=== PATIENT | female | born 1940 | race Caucasian/White ===

== ENCOUNTER 2018-09-16 10:09 | Emergency (ER) | payer OTHER ==
[~2018-09-16] VITALS: Ht 162.5 cm; Wt 72.6 kg
[~2018-09-16 10:09] MED LIST: LOMOTIL 0.025 M1 TA1 PO; NORCO 5-325 TA1 EACH PO; ZOFRAN ODT4 MG SL
[2018-09-16] MEDS ORDERED: NORCO 5-325 TA1 EACH PO (11:49)
== END 2018-09-16 12:49 | disposition home or self-care (01) ==
LOC: ED 10:09
DX: S43.084A Other dislocation of right shoulder joint, initial encounter (principal); Z90.49 Acquired absence of other specified parts of digestive tract; Z90.710 Acquired absence of both cervix and uterus; Z88.1 Allergy status to other antibiotic agents; Z91.011 Allergy to milk products; Z79.899 Other long term (current) drug therapy; X50.1XXA Overexertion from prolonged static or awkward postures, initial encounter; Y93.89 Activity, other specified; Y92.89 Other specified places as the place of occurrence of the external cause; Y99.9 Unspecified external cause status

== ENCOUNTER 2018-09-25 19:37 | Emergency (ER) | payer OTHER ==
[~2018-09-25] VITALS: Ht 162.5 cm; Wt 72.6 kg
== END 2018-09-26 00:17 | disposition home or self-care (01) ==
LOC: ED 19:37
DX: S43.014A Anterior dislocation of right humerus, initial encounter (principal); Z90.49 Acquired absence of other specified parts of digestive tract; Z90.710 Acquired absence of both cervix and uterus; Z88.1 Allergy status to other antibiotic agents; Z91.011 Allergy to milk products; X50.1XXA Overexertion from prolonged static or awkward postures, initial encounter; Y93.89 Activity, other specified; Y92.89 Other specified places as the place of occurrence of the external cause; Y99.9 Unspecified external cause status

== ENCOUNTER → 2019-08-04 | Outpatient (CLI) | payer OTHER | END | disposition home or self-care (01) | LOC: MRI 13:43 | DX: S83.282A Other tear of lateral meniscus, current injury, left knee, initial encounter (principal); M25.462 Effusion, left knee; X58.XXXA Exposure to other specified factors, initial encounter; Y93.89 Activity, other specified; Y92.89 Other specified places as the place of occurrence of the external cause; Y99.8 Other external cause status ==

== ENCOUNTER 2023-02-27 14:01 | Inpatient (IN) | payer OTHER ==
[~2023-02-27] VITALS: Ht 167.6 cm; Wt 72.6 kg
[2023-02-27 14:50] VITALS: BP 119/47
[2023-02-27 15:51] LABS: BASO # 0.1 10*3/uL (0.0-0.1); BASO % 0.5 % (0.0-1.0); EOS # 0.1 10*3/uL (0.0-0.4); EOS % 0.8 % (1.0-4.0); HEMATOCRIT 42.6 % (37.0-47.0); LYMPH # 1.4 10*3/uL (1.3-4.4); LYMPH % 10.8 % (27.0-41.0); MEAN CELL VOLUME 91.8 fl (81.0-99.0); MEAN CORPUSCULAR HGB 29.1 pg (27.0-31.0); MEAN CORPUSCULAR HGB CONC 31.7 g/dl (33.0-37.0); MEAN PLATELET VOLUME 9.5 fl (9.6-12.3); MONO # 0.7 10*3/uL (0.1-1.0); MONO % 5.5 % (3.0-9.0); NEUT # 10.8 10*3/uL (2.3-7.9); NEUT % 81.9 % (47.0-73.0); PLATELET COUNT AUTOMATED 191 10*3/uL (130-400); RED BLOOD COUNT 4.64 10*6/uL (4.10-5.10); RED CELL DISTRI WIDTH 13.7 % (0-14.5); WHITE BLOOD COUNT 13.2 10*3/uL (4.8-10.8)
[2023-02-27 16:02] LABS: ACT PARTIAL THROMBO TIME 25.1 SECONDS (20.0-32.1)
[2023-02-27 16:18] LABS: ALKALINE PHOSPHATASE 84 U/L (46-116); BUN 15 mg/dl (9-23); CHLORIDE 103 mmol/L (98-107); LIPASE 30 U/L (12-53); POTASSIUM 3.7 mmol/L (3.4-5.1); SGPT/ALT 14 U/L (10-49); TOTAL PROTEIN 6.7 gm/dL (6.0-8.0)
[2023-02-27 17:55] LABS: BILIRUBIN Negative (Negative); BLOOD Negative (Negative); CLARITY Clear (Clear); COLOR Yellow (Yellow); GLUCOSE Negative (Negative); KETONE Negative (Negative); LEUKO ESTERASE 2+ (Negative); NITRITE Positive (Negative); SPECIFIC GRAVITY 1.015 (1.001-1.030); UROBILINOGEN 0.2 E.U./dl (0.0-1.0)
[2023-02-27 18:14] LABS: BACTERIA 4+; WBC 21-30 wbc/hpf (0-5)
[2023-02-27 19:00] VITALS: BP 120/50
[2023-02-27] MEDS ORDERED: PROTONIX TR40 M1 PO (19:24)
[2023-02-27] MEDS ORDERED: SYNTHROID,LEVO88 MCG PO (19:25)
[2023-02-27] MEDS ORDERED: PLAVIX75 M1 PO (19:25)
[2023-02-27] MEDS ORDERED: PRISTIQ50 MG PO (19:25)
[2023-02-28] VITALS: BP 118/54
[2023-02-28 08:00] VITALS: BP 196/84
[2023-02-28 08:45] LABS: BASO % 0.6 % (0.0-1.0); EOS # 0.2 10*3/uL (0.0-0.4); EOS % 2.7 % (1.0-4.0); HEMATOCRIT 36.4 % (37.0-47.0); LYMPH # 1.6 10*3/uL (1.3-4.4); LYMPH % 23.8 % (27.0-41.0); MEAN CELL VOLUME 91.9 fl (81.0-99.0); MEAN CORPUSCULAR HGB CONC 31.6 g/dl (33.0-37.0); MEAN PLATELET VOLUME 9.7 fl (9.6-12.3); MONO # 0.7 10*3/uL (0.1-1.0); MONO % 9.9 % (3.0-9.0); NEUT # 4.2 10*3/uL (2.3-7.9); NEUT % 62.8 % (47.0-73.0); PLATELET COUNT AUTOMATED 152 10*3/uL (130-400); RED BLOOD COUNT 3.96 10*6/uL (4.10-5.10); RED CELL DISTRI WIDTH 13.7 % (0-14.5); WHITE BLOOD COUNT 6.6 10*3/uL (4.8-10.8)
[2023-02-28 09:20] LABS: ALKALINE PHOSPHATASE 67 U/L (46-116); BUN 14 mg/dl (9-23); CHLORIDE 107 mmol/L (98-107); CHOLESTEROL 125 mg/dL (<200); FREE T4 0.93 ng/dl (0.89-1.76); LDL CHOLESTEROL 61 mg/dL (9-159); POTASSIUM 3.6 mmol/L (3.4-5.1); SGPT/ALT 9 U/L (10-49); TOTAL PROTEIN 5.5 gm/dL (6.0-8.0); TRIGLYCERIDES 89 mg/dl (<150)
[2023-02-28 10:04] LABS: VITAMIN D, 25-HYDROXY 57.6 ng/mL (30-100)
[2023-02-28 16:00] VITALS: BP 125/31
[2023-02-28] MEDS ORDERED: NEURONTIN300 MG PO (16:53)
[2023-02-28] MEDS ORDERED: PRAVASTATIN SOD10 MG PO (16:55)
[2023-03-01] VITALS: BP 110/51
[2023-03-01 08:00] VITALS: BP 143/45
[2023-03-01 12:00] VITALS: BP 135/52
[2023-03-01 16:00] VITALS: BP 151/58
[2023-03-01 20:00] VITALS: BP 124/50
[2023-03-02] VITALS: BP 109/48
[2023-03-02 08:00] VITALS: BP 119/59
[2023-03-02 12:00] VITALS: BP 137/78
[2023-03-02 16:00] VITALS: BP 126/51
[2023-03-02 20:00] VITALS: BP 132/52
[2023-03-03] VITALS: BP 115/51
[2023-03-03 08:00] VITALS: BP 114/50
[2023-03-03 12:00] VITALS: BP 111/45
[2023-03-03 16:00] VITALS: BP 120/45
[2023-03-03 20:00] VITALS: BP 125/57
[2023-03-04] VITALS: BP 126/50
[2023-03-04 06:07] LABS: BASO # 0.1 10*3/uL (0.0-0.1); BASO % 0.8 % (0.0-1.0); EOS # 0.4 10*3/uL (0.0-0.4); EOS % 4.8 % (1.0-4.0); HEMATOCRIT 39.8 % (37.0-47.0); LYMPH # 2.2 10*3/uL (1.3-4.4); LYMPH % 30.4 % (27.0-41.0); MEAN CORPUSCULAR HGB CONC 31.2 g/dl (33.0-37.0); MEAN PLATELET VOLUME 9.9 fl (9.6-12.3); MONO # 0.6 10*3/uL (0.1-1.0); MONO % 8.6 % (3.0-9.0); PLATELET COUNT AUTOMATED 176 10*3/uL (130-400); RED BLOOD COUNT 4.28 10*6/uL (4.10-5.10); RED CELL DISTRI WIDTH 13.7 % (0-14.5); WHITE BLOOD COUNT 7.3 10*3/uL (4.8-10.8)
[2023-03-04 06:28] LABS: ALKALINE PHOSPHATASE 71 U/L (46-116); BUN 10 mg/dl (9-23); CHLORIDE 101 mmol/L (98-107); POTASSIUM 3.9 mmol/L (3.4-5.1); SGPT/ALT 8 U/L (10-49); TOTAL PROTEIN 6.2 gm/dL (6.0-8.0)
[2023-03-04 08:00] VITALS: BP 137/52
[2023-03-04 12:00] VITALS: BP 132/58
[2023-03-04 16:00] VITALS: BP 133/64
[2023-03-04 20:00] VITALS: BP 125/61
[2023-03-05] VITALS: BP 122/54
[2023-03-05 08:00] VITALS: BP 153/78
[2023-03-05 12:00] VITALS: BP 131/52
[2023-03-05 16:00] VITALS: BP 119/50
[2023-03-05 20:00] VITALS: BP 126/48
[2023-03-06] VITALS: BP 106/47; BP 142/85
[2023-03-06 08:00] VITALS: BP 130/57
[2023-03-06] MEDS ORDERED: HYDROCODONE-AC1 EAC1 PO (10:48)
[2023-03-06] MEDS ORDERED: NEURONTIN300 MG PO (10:48)
[2023-03-06 12:00] VITALS: BP 134/67
== END 2023-03-06 15:34 | DRG 536 ==
LOC: ED 14:01 → 4E 18:31 → EDHOLD 18:31 → 4E 02-28 17:03
PROVIDERS: Emergency Medicine; Internal Medicine; Student in an Organized Health Care Education/Training Program; ADMIT Internal Medicine; ATTEND Internal Medicine
DX: S32.592A Other specified fracture of left pubis, initial encounter for closed fracture (principal); N39.0 Urinary tract infection, site not specified; E03.9 Hypothyroidism, unspecified; D72.829 Elevated white blood cell count, unspecified; D64.9 Anemia, unspecified; R73.9 Hyperglycemia, unspecified; K21.9 Gastro-esophageal reflux disease without esophagitis; F41.9 Anxiety disorder, unspecified; Z88.8 Allergy status to other drugs, medicaments and biological substances; Z88.1 Allergy status to other antibiotic agents; Z91.041 Radiographic dye allergy status; Z90.49 Acquired absence of other specified parts of digestive tract; Z90.710 Acquired absence of both cervix and uterus; Z86.711 Personal history of pulmonary embolism; Z86.718 Personal history of other venous thrombosis and embolism; Z80.0 Family history of malignant neoplasm of digestive organs; W18.39XA Other fall on same level, initial encounter; Y93.89 Activity, other specified; Y92.89 Other specified places as the place of occurrence of the external cause; Y99.8 Other external cause status

== ENCOUNTER → 2023-03-21 | Outpatient (CLI) | payer OTHER ==
[~2023-03-21] MED LIST changes: +HYDROCODONE-AC1 EAC1 PO; +NEURONTIN300 MG PO; +PLAVIX75 M1 PO; +PRAVASTATIN SOD10 MG PO; +PRISTIQ50 MG PO; +PROTONIX TR40 M1 PO; +SYNTHROID,LEVO88 MCG PO
== END | disposition home or self-care (01) ==
LOC: ORTHO 00:52
PROVIDERS: ATTEND Orthopaedic Surgery
DX: S32.592D Other specified fracture of left pubis, subsequent encounter for fracture with routine healing (principal); M16.0 Bilateral primary osteoarthritis of hip; X58.XXXD Exposure to other specified factors, subsequent encounter

== ENCOUNTER 2023-04-30 18:24 | Emergency (ER) | payer OTHER ==
[~2023-04-30] VITALS: Wt 77.1 kg
[~2023-04-30 18:24] MED LIST changes: +CO Q-1050 M1 PO; +DOXYCYCLINE HY100 M3 PO
[2023-04-30 19:14] LABS: BASO % 0.2 % (0.0-1.0); EOS # 0.2 10*3/uL (0.0-0.4); EOS % 2.5 % (1.0-4.0); HEMATOCRIT 38.2 % (37.0-47.0); LYMPH # 0.4 10*3/uL (1.3-4.4); LYMPH % 6.5 % (27.0-41.0); MEAN CELL VOLUME 89.5 fl (81.0-99.0); MEAN CORPUSCULAR HGB CONC 32.5 g/dl (33.0-37.0); MEAN PLATELET VOLUME 9.3 fl (9.6-12.3); MONO # 0.3 10*3/uL (0.1-1.0); MONO % 5.2 % (3.0-9.0); NEUT # 5.2 10*3/uL (2.3-7.9); NEUT % 85.3 % (47.0-73.0); PLATELET COUNT AUTOMATED 144 10*3/uL (130-400); RED BLOOD COUNT 4.27 10*6/uL (4.10-5.10); RED CELL DISTRI WIDTH 14.1 % (0-14.5); WHITE BLOOD COUNT 6.1 10*3/uL (4.8-10.8)
[2023-04-30 19:36] LABS: ALKALINE PHOSPHATASE 114 U/L (46-116); BUN 14 mg/dl (9-23); CHLORIDE 99 mmol/L (98-107); LIPASE 23 U/L (12-53); POTASSIUM 3.8 mmol/L (3.4-5.1); SGPT/ALT 60 U/L (5-49); TOTAL PROTEIN 6.2 gm/dL (6.0-8.0)
[2023-04-30 20:36] LABS: BILIRUBIN Negative (Negative); BLOOD Negative (Negative); CLARITY Clear (Clear); COLOR Yellow (Yellow); GLUCOSE Negative (Negative); KETONE Negative (Negative); LEUKO ESTERASE 1+ (Negative); NITRITE Negative (Negative)
[2023-04-30 20:56] LABS: BACTERIA TRACE; MUCOUS 1+
[2023-04-30] MEDS ORDERED: OMNICEF300 MG PO (21:04)
== END 2023-04-30 21:58 | disposition home or self-care (01) ==
LOC: ED 18:24
PROVIDERS: Nurse Practitioner Family
DX: N39.0 Urinary tract infection, site not specified (principal); R11.2 Nausea with vomiting, unspecified; I10 Essential (primary) hypertension; R73.9 Hyperglycemia, unspecified; F41.9 Anxiety disorder, unspecified; K21.9 Gastro-esophageal reflux disease without esophagitis; F32.A Depression, unspecified; E78.00 Pure hypercholesterolemia, unspecified; E03.9 Hypothyroidism, unspecified; Z88.8 Allergy status to other drugs, medicaments and biological substances; Z91.041 Radiographic dye allergy status; Z90.49 Acquired absence of other specified parts of digestive tract; Z98.890 Other specified postprocedural states; Z90.710 Acquired absence of both cervix and uterus

== ENCOUNTER 2023-07-04 12:17 | Emergency (ER) | payer OTHER ==
[~2023-07-04] VITALS: Ht 162.5 cm; Wt 68.5 kg
[~2023-07-04 12:17] MED LIST changes: +ACID REDUCER10 MG PO; +AMOXICILLIN500 M3 PO; +BUPROPION HYDR150 M3 PO; +OMNICEF300 MG PO
[2023-07-04 12:57] LABS: BASO % 0.5 % (0.0-1.0); EOS # 0.2 10*3/uL (0.0-0.4); EOS % 2.7 % (1.0-4.0); HEMATOCRIT 42.4 % (37.0-47.0); LYMPH # 2.1 10*3/uL (1.3-4.4); LYMPH % 27.2 % (27.0-41.0); MEAN CELL VOLUME 91.6 fl (81.0-99.0); MEAN CORPUSCULAR HGB 28.7 pg (27.0-31.0); MEAN CORPUSCULAR HGB CONC 31.4 g/dl (33.0-37.0); MEAN PLATELET VOLUME 9.3 fl (9.6-12.3); MONO # 0.6 10*3/uL (0.1-1.0); NEUT # 4.7 10*3/uL (2.3-7.9); NEUT % 61.3 % (47.0-73.0); PLATELET COUNT AUTOMATED 228 10*3/uL (130-400); RED BLOOD COUNT 4.63 10*6/uL (4.10-5.10); RED CELL DISTRI WIDTH 14.1 % (0-14.5); WHITE BLOOD COUNT 7.7 10*3/uL (4.8-10.8)
[2023-07-04 13:08] LABS: ACT PARTIAL THROMBO TIME 26.4 SECONDS (20.0-32.1)
[2023-07-04 13:18] LABS: ALKALINE PHOSPHATASE 79 U/L (46-116); BUN 10 mg/dl (9-23); CHLORIDE 101 mmol/L (98-107); POTASSIUM 4.5 mmol/L (3.4-5.1); TOTAL PROTEIN 6.8 gm/dL (6.0-8.0)
[2023-07-04 13:30] LABS: SGPT/ALT < 7 U/L (5-49)
[2023-07-04 15:05] LABS: BILIRUBIN Negative (Negative); BLOOD Negative (Negative); CLARITY Cloudy (Clear); COLOR Yellow (Yellow); GLUCOSE Negative (Negative); KETONE Negative (Negative); LEUKO ESTERASE Trace (Negative); NITRITE Negative (Negative); UROBILINOGEN 0.2 E.U./dl (0.0-1.0)
[2023-07-04 15:34] LABS: BACTERIA TRACE
== END 2023-07-04 15:01 | disposition home or self-care (01) ==
LOC: ED 12:17
PROVIDERS: Nurse Practitioner
DX: R25.1 Tremor, unspecified (principal); F41.9 Anxiety disorder, unspecified; F32.A Depression, unspecified; K21.9 Gastro-esophageal reflux disease without esophagitis; E78.00 Pure hypercholesterolemia, unspecified; R10.2 Pelvic and perineal pain; Z86.73 Personal history of transient ischemic attack (TIA), and cerebral infarction without residual deficits; Z88.1 Allergy status to other antibiotic agents; Z91.041 Radiographic dye allergy status; Z88.8 Allergy status to other drugs, medicaments and biological substances; Z90.49 Acquired absence of other specified parts of digestive tract; Z90.710 Acquired absence of both cervix and uterus; Z98.890 Other specified postprocedural states; Z79.899 Other long term (current) drug therapy

== ENCOUNTER 2023-09-19 18:02 | Inpatient (IN) | payer OTHER ==
[~2023-09-19] VITALS: Ht 162.5 cm; Wt 76.3 kg
[2023-09-19 18:05] VITALS: BP 160/90
[2023-09-19] MEDS ORDERED: DESVENLAFAXINE50 M3 PO (18:50)
[2023-09-19] MEDS ORDERED: DAIRY AID3000 UNIT PO (18:51)
[2023-09-19] MEDS ORDERED: PAIN RELIEVER500 MG PO (18:55)
[2023-09-19] MEDS ORDERED: LOTEMAX 0.5% 1010 ML OPH (18:57)
[2023-09-19] MEDS ORDERED: SYSTANE 0.3-0.1 EACH OP (19:02)
[2023-09-19 19:09] LABS: ALKALINE PHOSPHATASE 80 U/L (46-116); BUN 14 mg/dl (9-23); CHLORIDE 103 mmol/L (98-107); POTASSIUM 3.9 mmol/L (3.4-5.1); SGPT/ALT 7 U/L (5-49); TOTAL PROTEIN 6.8 gm/dL (6.0-8.0)
[2023-09-19 19:11] VITALS: BP 148/30
[2023-09-19] MEDS ORDERED: SODIUM CHLORIDE 0.9% 1,000 ML IV ONE (19:15)
[2023-09-19 19:23] LABS: BASO # 0.1 10*3/uL (0.0-0.1); BASO % 0.7 % (0.0-1.0); EOS # 0.2 10*3/uL (0.0-0.4); EOS % 2.4 % (1.0-4.0); HEMATOCRIT 40.3 % (37.0-47.0); LYMPH # 2.4 10*3/uL (1.3-4.4); LYMPH % 28.5 % (27.0-41.0); MEAN CELL VOLUME 92.6 fl (81.0-99.0); MEAN CORPUSCULAR HGB 27.8 pg (27.0-31.0); MONO # 0.8 10*3/uL (0.1-1.0); MONO % 9.4 % (3.0-9.0); NEUT # 4.9 10*3/uL (2.3-7.9); NEUT % 58.8 % (47.0-73.0); PLATELET COUNT AUTOMATED 176 10*3/uL (130-400); RED BLOOD COUNT 4.35 10*6/uL (4.10-5.10); RED CELL DISTRI WIDTH 14.3 % (0-14.5); WHITE BLOOD COUNT 8.3 10*3/uL (4.8-10.8)
[2023-09-19] MEDS ORDERED: methylPREDNISolone sod succ 125 MG VIAL IV ONE (20:00)
[2023-09-19] MEDS ORDERED: ACETAMINOPHEN 325 MG TAB PO PRN (20:30)
[2023-09-19] MEDS ORDERED: BISACODYL 10 MG SUPP R PRN (20:30)
[2023-09-19] MEDS ORDERED: Magnesium Hydroxide 30 ML UDC PO PRN (20:30)
[2023-09-19] MEDS ORDERED: Acetaminophen/Hydrocodone 5 MG/325 MG TABLET PO PRN (20:30)
[2023-09-19] MEDS ORDERED: TEMAZEPAM 15 MG CAP PO PRN (20:30)
[2023-09-19] MEDS ORDERED: ACETAMINOPHEN 650 MG SUPP R PRN (20:30)
[2023-09-19] MEDS ORDERED: BISACODYL 5 MG TAB PO PRN (20:30)
[2023-09-19] MEDS ORDERED: Albuterol Sulf/Ipratropium 14.7 GM INHALER INH PRN (20:35)
[2023-09-19] MEDS ORDERED: Albuterol Sulf/Ipratropium 3 ML VIAL NEB PRN (20:45)
[2023-09-19 21:01] VITALS: BP 107/86
[2023-09-19] MEDS ORDERED: GUAIFENESIN 600 MG TAB ER PO SCH (22:00)
[2023-09-19] MEDS ORDERED: SODIUM CHLORIDE 0.9% 500 ML IV SCH (23:35)
[2023-09-20] VITALS (8 sets, daily range): BP systolic 112–137; BP diastolic 48–76
[2023-09-20 07:18] LABS: HEMATOCRIT 38.6 % (37.0-47.0); MEAN CELL VOLUME 91.5 fl (81.0-99.0); MEAN CORPUSCULAR HGB CONC 30.6 g/dl (33.0-37.0); PLATELET COUNT AUTOMATED 173 10*3/uL (130-400); RED BLOOD COUNT 4.22 10*6/uL (4.10-5.10); RED CELL DISTRI WIDTH 14.1 % (0-14.5); WHITE BLOOD COUNT 6.8 10*3/uL (4.8-10.8)
[2023-09-20 07:26] LABS: MANUAL DIFF REFLEX YES
[2023-09-20 07:39] LABS: PLATELET SUFFICIENCY NORMAL (NORMAL); POLYCHROMASIA SLIGHT; TOTAL CELLS COUNTED 100 #CELLS; TOXIC GRANULATION SLIGHT
[2023-09-20 07:40] LABS: OVALOCYTES FEW; ROULEAUX SLIGHT
[2023-09-20 07:55] LABS: BUN 12 mg/dl (9-23); CHLORIDE 105 mmol/L (98-107); POTASSIUM 4.1 mmol/L (3.4-5.1)
[2023-09-20] MEDS ORDERED: Ceftriaxone Sodium 1 GM in SYRINGE INFUSION 10 ML IV SCH (09:05)
[2023-09-20 09:51] LABS: BILIRUBIN Negative (Negative); BLOOD Trace-Lysed (Negative); CLARITY Cloudy (Clear); COLOR Yellow (Yellow); GLUCOSE Negative (Negative); KETONE Negative (Negative); LEUKO ESTERASE 3+ (Negative); NITRITE Positive (Negative); SPECIFIC GRAVITY 1.015 (1.001-1.030); UROBILINOGEN 0.2 E.U./dl (0.0-1.0)
[2023-09-20] MEDS ORDERED: Enoxaparin Sodium 40 MG/0.4 ML SYR SC SCH (10:00)
[2023-09-20] MEDS ORDERED: methylPREDNISolone sod succ 40 MG VIAL IV SCH (10:00)
[2023-09-20 10:13] LABS: BACTERIA 4+
[2023-09-20 10:14] LABS: WBC 51-100 wbc/hpf (0-5)
[2023-09-20] MEDS ORDERED: AZITHROMYCIN 250 ML IV SCH (11:00)
[2023-09-20] MEDS ORDERED: Doxycycline Hyclate 100 MG in SODIUM CHLORIDE 0.9% 250 ML IV SCH (13:00)
[2023-09-21] VITALS: BP 132/58
[2023-09-21] MEDS ORDERED: NYSTATIN 15 GM BOT T SCH (06:00)
[2023-09-21 06:39] LABS: BASO % 0.1 % (0.0-1.0); LYMPH # 1.2 10*3/uL (1.3-4.4); MEAN CELL VOLUME 89.2 fl (81.0-99.0); MEAN CORPUSCULAR HGB 27.9 pg (27.0-31.0); MEAN CORPUSCULAR HGB CONC 31.3 g/dl (33.0-37.0); MEAN PLATELET VOLUME 9.8 fl (9.6-12.3); MONO # 0.2 10*3/uL (0.1-1.0); MONO % 1.5 % (3.0-9.0); NEUT # 10.2 10*3/uL (2.3-7.9); NEUT % 87.9 % (47.0-73.0); PLATELET COUNT AUTOMATED 182 10*3/uL (130-400); RED BLOOD COUNT 4.26 10*6/uL (4.10-5.10); RED CELL DISTRI WIDTH 14.5 % (0-14.5); WHITE BLOOD COUNT 11.6 10*3/uL (4.8-10.8)
[2023-09-21 07:11] LABS: BUN 11 mg/dl (9-23); CHLORIDE 104 mmol/L (98-107)
[2023-09-21 08:00] VITALS: BP 138/58
[2023-09-21] MEDS ORDERED: Ondansetron Hydrochloride 4 MG/2 ML VIAL IV PRN (09:55)
[2023-09-21 12:00] VITALS: BP 101/73
[2023-09-21 16:00] VITALS: BP 141/71
[2023-09-21 20:00] VITALS: BP 136/77
[2023-09-22] VITALS: BP 178/50
[2023-09-22 06:37] LABS: HEMATOCRIT 40.3 % (37.0-47.0); LYMPH # 1.1 10*3/uL (1.3-4.4); LYMPH % 13.1 % (27.0-41.0); MEAN CELL VOLUME 88.8 fl (81.0-99.0); MEAN CORPUSCULAR HGB 27.8 pg (27.0-31.0); MEAN CORPUSCULAR HGB CONC 31.3 g/dl (33.0-37.0); MEAN PLATELET VOLUME 9.6 fl (9.6-12.3); MONO # 0.2 10*3/uL (0.1-1.0); MONO % 1.9 % (3.0-9.0); NEUT # 7.1 10*3/uL (2.3-7.9); NEUT % 84.6 % (47.0-73.0); PLATELET COUNT AUTOMATED 180 10*3/uL (130-400); RED BLOOD COUNT 4.54 10*6/uL (4.10-5.10); RED CELL DISTRI WIDTH 14.6 % (0-14.5); WHITE BLOOD COUNT 8.4 10*3/uL (4.8-10.8)
[2023-09-22 06:56] LABS: BUN 14 mg/dl (9-23); CHLORIDE 102 mmol/L (98-107); POTASSIUM 4.3 mmol/L (3.4-5.1)
[2023-09-22 08:00] VITALS: BP 161/66
[2023-09-22] MEDS ORDERED: GABAPENTIN 300 MG CAP PO SCH (10:00)
[2023-09-22] MEDS ORDERED: ATORVASTATIN CALCIUM 10 MG TAB PO SCH (10:00)
[2023-09-22] MEDS ORDERED: buPROPion XL 150 MG TAB PO SCH (10:00)
[2023-09-22] MEDS ORDERED: Levothyroxine Sodium 88 MCG TAB PO SCH (10:00)
[2023-09-22] MEDS ORDERED: Clopidogrel Hydrogen Sulfate 75 MG TAB PO SCH (10:00)
[2023-09-22 12:00] VITALS: BP 135/55
[2023-09-22] MEDS ORDERED: PREDNISONE10 MG PO (12:53)
[2023-09-22] MEDS ORDERED: MACROBID100 M1 PO (12:53)
[2023-09-22] MEDS ORDERED: NEURONTIN300 MG PO ×2 (12:53→12:55)
== END 2023-09-22 15:51 | DRG 71 ==
LOC: ED 18:02 → EDHOLD 20:07 → 4E 20:07
PROVIDERS: Emergency Medicine; Student in an Organized Health Care Education/Training Program; ADMIT Family Medicine; ATTEND Family Medicine
DX: G93.41 Metabolic encephalopathy (principal); E87.20 Acidosis, unspecified; N30.01 Acute cystitis with hematuria; J20.8 Acute bronchitis due to other specified organisms; I10 Essential (primary) hypertension; F41.9 Anxiety disorder, unspecified; K21.9 Gastro-esophageal reflux disease without esophagitis; E03.9 Hypothyroidism, unspecified; M81.0 Age-related osteoporosis without current pathological fracture; G62.9 Polyneuropathy, unspecified; R73.9 Hyperglycemia, unspecified; D72.829 Elevated white blood cell count, unspecified; B96.20 Unspecified Escherichia coli [E. coli] as the cause of diseases classified elsewhere; Z90.49 Acquired absence of other specified parts of digestive tract; Z90.710 Acquired absence of both cervix and uterus; Z80.0 Family history of malignant neoplasm of digestive organs; Z86.718 Personal history of other venous thrombosis and embolism; Z86.711 Personal history of pulmonary embolism; Z90.721 Acquired absence of ovaries, unilateral; Z88.8 Allergy status to other drugs, medicaments and biological substances; Z88.1 Allergy status to other antibiotic agents; Z91.041 Radiographic dye allergy status

== ENCOUNTER 2023-12-29 20:10 | Emergency (ER) | payer OTHER ==
[~2023-12-29] VITALS: Ht 162.5 cm; Wt 83.5 kg
[~2023-12-29 20:10] MED LIST changes: +DAIRY AID3000 UNIT PO; +DESVENLAFAXINE50 M3 PO; +FLUTICASONE-SA1 EAC4 INH; +LEVOTHYROXINE125 MCG PO; +LOTEMAX 0.5% 1010 ML OPH; +MACROBID100 M1 PO; +PAIN RELIEVER500 MG PO; +PREDNISONE10 MG PO; +SYSTANE 0.3-0.1 EACH OP; +ZITHROMAX500 MG PO
[2023-12-29] MEDS ORDERED: Ondansetron Hydrochloride 4 MG/2 ML VIAL IV ONE (20:20)
[2023-12-29] MEDS ORDERED: SODIUM CHLORIDE 0.9% 1,000 ML IV ONE (20:20)
[2023-12-29 20:38] LABS: BASO % 0.2 % (0.0-1.0); LYMPH # 1.8 10*3/uL (1.3-4.4); LYMPH % 11.7 % (27.0-41.0); MEAN CELL VOLUME 90.5 fl (81.0-99.0); MEAN CORPUSCULAR HGB 28.9 pg (27.0-31.0); MEAN CORPUSCULAR HGB CONC 31.9 g/dl (33.0-37.0); MEAN PLATELET VOLUME 9.1 fl (9.6-12.3); MONO # 0.8 10*3/uL (0.1-1.0); MONO % 5.3 % (3.0-9.0); NEUT # 12.8 10*3/uL (2.3-7.9); NEUT % 81.2 % (47.0-73.0); PLATELET COUNT AUTOMATED 225 10*3/uL (130-400); RED BLOOD COUNT 4.64 10*6/uL (4.10-5.10); WHITE BLOOD COUNT 15.8 10*3/uL (4.8-10.8)
[2023-12-29 20:56] LABS: ALKALINE PHOSPHATASE 68 U/L (46-116); BUN 23 mg/dl (9-23); CHLORIDE 99 mmol/L (98-107); LIPASE 39 U/L (12-53); POTASSIUM 4.8 mmol/L (3.4-5.1); SGPT/ALT 15 U/L (5-49)
[2023-12-29 22:12] LABS: BILIRUBIN Negative (Negative); BLOOD Negative (Negative); CLARITY Clear (Clear); COLOR Yellow (Yellow); GLUCOSE Negative (Negative); KETONE Negative (Negative); LEUKO ESTERASE Negative (Negative); NITRITE Negative (Negative); SPECIFIC GRAVITY 1.015 (1.001-1.030); UROBILINOGEN 0.2 E.U./dl (0.0-1.0)
[2023-12-29 22:25] LABS: BACTERIA 3+; EPITHELIAL CELLS 16-20
[2023-12-29 22:26] LABS: WBC 0-2 wbc/hpf (0-5)
[2023-12-29] MEDS ORDERED: Nitrofurantoin Monohydrate/N 100 MG CAP PO ONE (22:45)
[2023-12-29] MEDS ORDERED: MACRODANTIN50 MG PO (23:05)
== END 2023-12-30 00:47 ==
LOC: ED 20:10
PROVIDERS: Internal Medicine
DX: N39.0 Urinary tract infection, site not specified (principal); N17.9 Acute kidney failure, unspecified; D72.89 Other specified disorders of white blood cells; E44.1 Mild protein-calorie malnutrition; R11.2 Nausea with vomiting, unspecified; Z88.1 Allergy status to other antibiotic agents; Z88.8 Allergy status to other drugs, medicaments and biological substances; Z91.048 Other nonmedicinal substance allergy status; Z91.041 Radiographic dye allergy status; Z79.899 Other long term (current) drug therapy; Z90.49 Acquired absence of other specified parts of digestive tract; Z90.711 Acquired absence of uterus with remaining cervical stump

== ENCOUNTER 2024-02-18 13:26 | Emergency (ER) | payer OTHER ==
[~2024-02-18] VITALS: Ht 165.1 cm; Wt 78.0 kg
[~2024-02-18 13:26] MED LIST changes: +MACRODANTIN50 MG PO
[2024-02-18 13:49] LABS: BASO # 0.1 10*3/uL (0.0-0.1); BASO % 0.5 % (0.0-1.0); EOS # 0.2 10*3/uL (0.0-0.4); EOS % 2.5 % (1.0-4.0); HEMATOCRIT 41.1 % (37.0-47.0); LYMPH # 2.4 10*3/uL (1.3-4.4); LYMPH % 24.5 % (27.0-41.0); MEAN CELL VOLUME 90.7 fl (81.0-99.0); MEAN CORPUSCULAR HGB 28.3 pg (27.0-31.0); MEAN CORPUSCULAR HGB CONC 31.1 g/dl (33.0-37.0); MEAN PLATELET VOLUME 9.8 fl (9.6-12.3); MONO % 10.2 % (3.0-9.0); NEUT % 62.1 % (47.0-73.0); PLATELET COUNT AUTOMATED 212 10*3/uL (130-400); RED BLOOD COUNT 4.53 10*6/uL (4.10-5.10); RED CELL DISTRI WIDTH 14.3 % (0-14.5); WHITE BLOOD COUNT 9.6 10*3/uL (4.8-10.8)
[2024-02-18 14:07] LABS: ACT PARTIAL THROMBO TIME 22.9 SECONDS (20.0-32.1); ALKALINE PHOSPHATASE 72 U/L (46-116); BUN 15 mg/dl (9-23); CHLORIDE 105 mmol/L (98-107); POTASSIUM 3.9 mmol/L (3.4-5.1); SGPT/ALT 10 U/L (5-49); TOTAL PROTEIN 6.4 gm/dL (6.0-8.0)
== END 2024-02-18 15:14 | disposition home or self-care (01) ==
LOC: ED 13:26
PROVIDERS: Emergency Medicine
DX: M79.652 Pain in left thigh (principal); M79.89 Other specified soft tissue disorders; F41.9 Anxiety disorder, unspecified; J44.9 Chronic obstructive pulmonary disease, unspecified; K21.9 Gastro-esophageal reflux disease without esophagitis; I10 Essential (primary) hypertension; Z86.718 Personal history of other venous thrombosis and embolism; E03.9 Hypothyroidism, unspecified; F32.A Depression, unspecified; E78.00 Pure hypercholesterolemia, unspecified; Z86.73 Personal history of transient ischemic attack (TIA), and cerebral infarction without residual deficits; Z88.1 Allergy status to other antibiotic agents; Z91.048 Other nonmedicinal substance allergy status; Z91.041 Radiographic dye allergy status; Z88.8 Allergy status to other drugs, medicaments and biological substances; Z90.49 Acquired absence of other specified parts of digestive tract; Z90.710 Acquired absence of both cervix and uterus; Z98.890 Other specified postprocedural states

== ENCOUNTER → 2024-05-14 | Outpatient (CLI) | payer OTHER | END | disposition home or self-care (01) | LOC: RAD 12:38 | PROVIDERS: ATTEND Internal Medicine | DX: R07.81 Pleurodynia (principal); M51.34 Other intervertebral disc degeneration, thoracic region; M43.8X4 Other specified deforming dorsopathies, thoracic region; M54.9 Dorsalgia, unspecified; Z98.890 Other specified postprocedural states ==